=== PATIENT | female | born 1970 | race Two or more races ===

== ENCOUNTER 2016-05-07 07:35 | Day surgery (SDC) | payer OTHER ==
[~2016-05-07 07:35] MED LIST: DIPHENHYDRAMINE HCL 50 MG/ML VIAL ONE; EPINEPHRINE INJ 1 MG/10 ML DISP.SYRIN ONE; FENTANYL CITRATE INJ/PF 100 MCG/2 ML AMPUL ONE; FLUMAZENIL INJ 0.5 MG/5 ML VIAL IV ONE; GLUCAGON,HUMAN RECOMB 1 MG INJ ONE; MIDAZOLAM 2 MG/2 ML INJ ONE; NALOXONE HCL INJ/PF 0.4 MG/1 ML SDV ONE; ONDANSETRON HCL INJ/PF 4 MG/2 ML SDV ONE; PROMETHAZINE HCL INJ 25 MG/1 ML VIAL ONE
--- NOTE | 2016-05-07 08:15 | Operative Report ---
Operative Report DATE OF SURGERY: 05/07/16 Operative Report: The risks benefits and alternatives of the procedure explained to the patient in detail and informed consent is obtained that GIF Olympus video scope was inserted into the patient's mouth and hypopharynx the esophagus is identified intubated and insufflated the scope was then advanced through the esophagus stomach and duodenum retroflexion maneuver is done the esophagus stomach and first and second portions of the duodenum examined PREOPERATIVE DIAGNOSIS: Abdominal pain, epigastric POSTOPERATIVE DIAGNOSIS: Gastritis status post biopsy rule out Helicobacter pylori OPERATION: EGD with biopsy SURGEON: SANDY AGUIRRE ANESTHESIA: Moderate Sedation - 2 mg of Versed, 25 g of fentanyl. TISSUE REMOVED OR ALTERED: Gastric specimens obtained COMPLICATIONS: None. ESTIMATED BLOOD LOSS: none. INTRAOPERATIVE FINDINGS: Normal esophagus. Gastritis noted, antral sparing. First and second portions of the duodenum are normal. PROCEDURE: Patient tolerated the procedure well. No immediate postprocedure complications are noted. Patient is discharged in good condition. Discharge date 05/07/2016. Discharge diet: Regular. Discharge activity: Regular. Patient does have a 2-3 week follow-up to discuss findings. Patient is instructed to call the office or proceed to the emergency room after any further problems or questions. We'll await on biopsies.
[2016-05-07 09:20] VITALS: BP 131/80
== END 2016-05-07 09:50 | disposition home or self-care (01) ==
LOC: END 07:35
PROVIDERS: ATTEND Internal Medicine Gastroenterology
PROC: 0DB68ZX Excision of Stomach, Via Natural or Artificial Opening Endoscopic, Diagnostic (ICD-10-PCS; principal; 2016-05-07 08:00)
DX: K29.50 Unspecified chronic gastritis without bleeding (principal); E78.5 Hyperlipidemia, unspecified; E11.9 Type 2 diabetes mellitus without complications; Z79.899 Other long term (current) drug therapy; Z79.84 Long term (current) use of oral hypoglycemic drugs
CPT/HCPCS: 43239; 82962; 88342 ×2; 88305 ×2; J2250; J3010; J0171; J1200; J1610; J2310; J2405; J2550; J3490

== ENCOUNTER → 2020-02-06 | Outpatient (CLI) | payer OTHER ==
[2020-02-06 11:28] LABS: ABSOLUTE EOSINOPHILS # (AUTO) 0.3 10^3/uL (0.0-0.6); ABSOLUTE LYMPHOCYTES (AUTO) 3.4 10^3/uL (0.5-4.7); ABSOLUTE MONOCYTES (AUTO) 0.4 10^3/uL (0.1-1.4); ABSOLUTE NEUT (AUTO) 4.3 10^3/uL (1.7-8.2); BASOPHILS % (AUTO) 0.5 % (0-2); EOSINOPHILS % (AUTO) 3.5 % (0-6); HEMATOCRIT 38.2 % (36.0-47.0); HEMOGLOBIN 13.2 g/dL (12.0-15.5); LYMPHOCYTES % (AUTO) 39.7 % (13-45); MEAN CORPUSCULAR HEMOGLOBIN 29.7 pg (27.0-33.4); MEAN CORPUSCULAR HGB CONC 34.6 g/dL (32.0-36.0); MEAN CORPUSCULAR VOLUME 86 fl (80-97); MONOCYTES % (AUTO) 5.2 % (3-13); PLATELET COUNT 190 10^3/uL (150-450); RED BLOOD COUNT 4.45 10^6/uL (3.72-5.28); RED CELL DISTRIBUTION WIDTH 12.8 % (11.5-14.0); SEGMENTED NEUTROPHILS % (AUTO) 51.1 % (42-78); TOTAL CELLS COUNTED % (AUTO) 100 %; WHITE BLOOD COUNT 8.5 10^3/uL (4.0-10.5)
[2020-02-06 12:03] LABS: ALBUMIN 4.4 g/dL (3.5-5.0); ALKALINE PHOSPHATASE 74 U/L (38-126); ANION GAP 13 (5-19); ASPARTATE AMINO TRANSFERASE 25 U/L (14-36); BILIRUBIN,TOTAL 0.5 mg/dL (0.2-1.3); BLOOD UREA NITROGEN 16 mg/dL (7-20); CALCIUM 9.6 mg/dL (8.4-10.2); CARBON DIOXIDE 21 mmol/L (22-30); CHLORIDE 107 mmol/L (98-107); CHOLESTEROL 191.01 mg/dL (0-200); GLUCOSE 161 mg/dL (75-110); TOTAL PROTEIN 7.8 g/dL (6.3-8.2); TRIGLYCERIDES 200 mg/dL (<150)
[2020-02-06 12:14] LABS: DIRECT LDL 91 mg/dL (<100)
[2020-02-07 13:37] LABS: CREATININE URINE 108.2 mg/dL (Not Estab.); MICROALBUMIN URINE 24.3 ug/mL (Not Estab.)
== END ==
LOC: OD 09:59
PROVIDERS: ATTEND Internal Medicine
DX: E11.9 Type 2 diabetes mellitus without complications (principal); I10 Essential (primary) hypertension; E78.5 Hyperlipidemia, unspecified; R53.83 Other fatigue
CPT/HCPCS: 36415; 80053; 80061; 82043; 82306; 82570; 83036; 84443; 85025

== ENCOUNTER → 2020-02-08 | Outpatient (CLI) | payer OTHER ==
--- NOTE | 2020-02-08 12:34 | WOMENS IMAGING REPORT ---
EXAM DESCRIPTION: BONE DENSITY HIP/SPINE IMAGES COMPLETED DATE/TIME: 02/08/2020 9:24 am REASON FOR STUDY: Z78.0 ASYMPTOMATIC MENOPAUSAL STATE Z78.0 ASYMPTOMATIC MENOPAUSAL STATE COMPARISON: None. TECHNIQUE: Dual-Energy X-ray Absorptiometry (DEXA) of the AP Spine and Hip. LIMITATIONS: None. FINDINGS: LUMBAR SPINE: The bone mineral density (BMD) measured from L1-L4 in the AP projection correlates with a T-score of -0.2, which is normal as defined by the World Health Organization. BMD Change vs Baseline: N/A HIP: The bone mineral density (BMD) measured in the left hip correlates with a T-score of -1.3, which is o steopenia as defined by the World Health Organization. BMD Change vs Baseline: N/A 10 year Fracture Risk Assessment: Major Osteoporotic Fracture: 4.3% Hip Fracture: 0.3% IMPRESSION: 1. LUMBAR SPINE WHO CLASSIFICATION: NORMAL. 2. HIP WHO CLASSIFICATION: OSTEOPENIA. COMMENT: The World Health Organization defines low BMD as follows: T-score: Normal: At or above -1.0 Osteopenia: Between -1.0 and -2.5 Osteoporosis: At or below -2.5 without fractures Established osteoporosis: At or below -2.5 with fractures In general, you may wish to consider: Diagnosis Treatment Follow-up DEXA Normal BMD Prevention 2-3 years Osteopenia Prevention/Therapy 1-2 years Osteoporosis Therapy Yearly TECHNICAL DOCUMENTATION: JOB ID: [id number] 2010 [employer]- All Rights Reserved Reading location - IP/workstation name: [email or web address]
--- OUTSIDE RECORDS SUMMARY | 2020-02-09 18:13 | XMS REPORT ---
:1970 [facility] [address] [place] [id number] Care Team Providers Name Role Phone Alea Attending Clinician Unavailable Alea Attending Clinician Unavailable Allergies, Adverse Reactions, Alerts This patient has no known allergies or adverse reactions. Medications This patient has no known medications. Problems This patient has no known problems. Procedures Procedure Date / Time Performed Performing Clinician Devic e OFFICE/OUTPATIENT VISIT, EST 2019-01-20 13:00:00 OFFICE/OUTPATIENT VISIT, EST 2018-04-13 14:00:00 Results Test Description Test Time Test Comments Text Results Atomic Results Result Comments COMPREHENSIVE METABOLIC PANEL 2019-01-20 14:01:00 Test Item Value Reference Range Comments ALT (test code = 1742-6) 16 U/L 6-29 AST (test code = 1920-8) 16 U/L 10-35 ALBUMIN/GLOBULIN RATIO (test code = 1759-0) 1.4 (calc) 1.0- 2.5 CHLORIDE (test code = 2075-0) 104 mmol/L 98-110 CARBON DIOXIDE (test code = 2027-9) 22 mmol/L 20-32 eGFR (test code = 01914-0) 114 mL/min/1.73m2 > OR = 60 GLOBULIN (test code = 03329-1) 3.1 g/dL (calc) 1.9-3.7 PROTEIN, TOTAL (test code = 2885-2) 7.4 g/dL 6.1-8.1 UREA NITROGEN (BUN) (test code = 3094-0) 17 mg/dL 7-25 GLUCOSE (test code = 2345-7) 122 mg/dL 65-99 CREATININE (test code = 2160-0) 0.72 mg/dL 0.50-1.10 ALKALINE PHOSPHATASE (test code = 6768-6) 72 U/L 33-115 SODIUM (test code = 2951-2) 139 mmol/L 135-146 BILIRUBIN, TOTAL (test code = 1975-2) 0.6 mg/dL 0.2-1.2 ALBUMIN (test code = 1751-7) 4.3 g/dL 3.6-5.1 POTASSIUM (test code = 2823-3) 4.3 mmol/L 3.5-5.3 CALCIUM (test code = 08722-0) 9.4 mg/dL 8.6-10.2 eGFR NON-AFR. SWAZI (test code = 26609-4) 98 mL/min/1.73m2 > OR = 60 BUN/CREATININE RATIO (test code = 3097-3) NOT APPLICABLE (calc) 6 LIPID PANEL, [id number] 14:01:00 Test Item Value Reference Range Comments LDL-CHOLESTEROL (test code = 62275-6) 51 mg/dL (calc) NON HDL CHOLESTEROL (test code = 00971-6) 75 mg/dL (calc) <130 HDL CHOLESTEROL (test code = 2085-9) 66 mg/dL >50 TRIGLYCERIDES (test code = 2571-8) 161 mg/dL <150 CHOLESTEROL, TOTAL (test code = 2093-3) 141 mg/dL <200 CHOL/HDLC RATIO (test code = 9830-1) 2.1 (calc) <5.0 SPECIMEN INTEGRITY [id number] 14:01:00SEE COMMENTCBC (INCLUDES DIFF/PLT)2019-01-20 14:01:00 Test Item Value Reference Range Comments HEMATOCRIT (test code = 4544-3) 41.6 % 35.0-45.0 MONOCYTES (test code = 5905-5) 4.8 % ABSOLUTE NUCLEATED RBC (test code = 43789-0) DNR cells/uL 0-0 HEMOGLOBIN (test code = 718-7) 13.8 g/dL 11.7-15.5 MCH (test code = 785-6) 28.6 pg 27.0-33.0 MCHC (test code = 786-4) 33.2 g/dL 32.0-36.0 MPV (test code = 776-5) 10.0 fL 7.5-12.5 BLASTS (test code = 709-6) DNR % ABSOLUTE BASOPHILS (test code = 704-7) 58 cells/uL 0-200 MYELOCYTES (test code = 749-2) DNR % EOSINOPHILS (test code = 713-8) 3.1 % ABSOLUTE MONOCYTES (test code = 742-7) 398 cells/uL 200-950 ABSOLUTE BLASTS (test code = 71692-6) DNR cells/uL 0-0 WHITE BLOOD CELL COUNT (test code = 6690-2) 8.3 Thousand/uL 3.8- 10.8 COMMENT(S) (test code = 8251-1) DNR ABSOLUTE METAMYELOCYTES (test code = DNR cells/uL 0-0 03769-7) REACTIVE LYMPHOCYTES (test code = 72985-8) DNR % 0-10 ABSOLUTE PROMYELOCYTES (test code = 54058-6) DNR cells/uL 0-0 ABSOLUTE EOSINOPHILS (test code = 711-2) 257 cells/uL 15-500 METAMYELOCYTES (test code = 740-1) DNR % ABSOLUTE LYMPHOCYTES (test code = 731-0) 3569 cells/uL 850-390 0 PROMYELOCYTES (test code = 783-1) DNR % LYMPHOCYTES (test code = 736-9) 43.0 % BASOPHILS (test code = 706-2) 0.7 % RED BLOOD CELL COUNT (test code = 789-8) 4.82 Million/uL 3.80-5. 10 NEUTROPHILS (test code = 770-8) 48.4 % ABSOLUTE BAND NEUTROPHILS (test code = DNR cells/uL 0-750 51409-7) NUCLEATED RBC (test code = 64924-0) DNR /100 WBC 0-0 BAND NEUTROPHILS (test code = 764-1) DNR % MCV (test code = 787-2) 86.3 fL 80.0-100.0 PLATELET COUNT (test code = 777-3) 217 Thousand/uL 140-400 ABSOLUTE MYELOCYTES (test code = 21108-4) DNR cells/uL 0-0 ABSOLUTE NEUTROPHILS (test code = 751-8) 4017 cells/uL 1500-78 00 RDW (test code = 788-0) 12.6 % 11.0-15.0 Hemoglobin A1c\S\2018-09-03 09:24:00 Test Item Value Reference Range Comments Hemoglobin A1c (test code = [id number]) 7.3 % 4.0-5.6 LIPID PANEL, [id number] 09:20:00 Test Item Value Reference Range Comments LDL-CHOLESTEROL (test code = 37671-7) 121 mg/dL (calc) HDL CHOLESTEROL (test code = 5-9) 63 mg/dL >50 NON HDL CHOLESTEROL (test code = 64603-2) 152 mg/dL (calc) <130 CHOL/HDLC RATIO (test code = 9830-1) 3.4 (calc) <5.0 TRIGLYCERIDES (test code = 2571-8) 192 mg/dL <150 CHOLESTEROL, TOTAL (test code = 2093-3) 215 mg/dL <200 COMPREHENSIVE METABOLIC [id number] 09:20:00 Test Item Value Reference Range Comments GLOBULIN (test code = 97888-5) 3.3 g/dL (calc) 1.9-3.7 UREA NITROGEN (BUN) (test code = 14 mg/dL 10-21-0) ALBUMIN/GLOBULIN RATIO (test code = 1.4 (calc) 1.0-2.5 175-0) AST (test code = 1920-8) 20 U/L 10-35 CREATININE (test code = 2160-0) 0.75 mg/dL 0.50-1.10 ALBUMIN (test code = 1751-7) 4.6 g/dL 3.6-5.1 PROTEIN, TOTAL (test code = 2885-2) 7.9 g/dL 6.1-8.1 BILIRUBIN, TOTAL (test code = 1974-) 0.5 mg/dL 0.2-1.2 CARBON DIOXIDE (test code = 2027-9) 24 mmol/L 20-32 CHLORIDE (test code = 2074-0) 107 mmol/L 98-110 eGFR (test code = 108 mL/min/1.73m2 > OR = 60 66602-3) BUN/CREATININE RATIO (test code = NOT APPLICABLE (calc) 09-18 3097-3) POTASSIUM (test code = 2823-3) 4.1 mmol/L 3.5-5.3 CALCIUM (test code = 11805-0) 9.7 mg/dL 8.6-10.2 SODIUM (test code = 2951-2) 140 mmol/L 135-146 eGFR NON-AFR. SWAZI (test code = 94 mL/min/1.73m2 > OR = 60 27053-6) ALT (test code = 1742-6) 19 U/L 6-29 GLUCOSE (test code = 2345-7) 121 mg/dL 65-99 ALKALINE PHOSPHATASE (test code = 81 U/L 33-115 6768-6) Hemoglobin A1c\S\2018-04-13 14:37:00 Test Item Value Reference Range Comments Hemoglobin A1c (test code = [id number]) 7.2 % 4.0-5.6 GLUCOSE,BEDSIDE\S\[id number] 07:48:00 Test Item Value Reference Range Comments GLUCOSE,BEDSIDE (test code = GLUBS) 170 mg/dL 70-110 Assessments Condition Name Status Diagnosis Date Treating Clinici an Essential (primary) hypertension Active Type 2 diabetes mellitus without Active complications Mixed hyperlipidemia Active Body mass index (BMI) 34.0-34.9, adult Active Type 2 diabetes mellitus without Active complications Mixed hyperlipidemia Active Other obesity due to excess calories Active Essential (primary) hypertension Active Encounters Start End Encounter Admission Attending Care Care Encounter Date/Time Date/Time Type Type Clinicians Facility Department ID 2019-01-20 2019-01-20 Outpatient JAY Cosby [facility] [id number] 4-9 13:00:00 13:00:00 [facility] [id number] Medicine [id number] 2018-04-13 Outpatient JAY Cosby [facility] [id number] B-C 14:00:00 14:00:00 [facility] [id number] Medicine [id number] Social History This patient has no known social history. Vital Signs This patient has no known vital signs.
== END ==
LOC: WI 08:55
PROVIDERS: ATTEND Internal Medicine
DX: Z78.0 Asymptomatic menopausal state (principal); M85.852 Other specified disorders of bone density and structure, left thigh
CPT/HCPCS: 77080

== ENCOUNTER → 2020-03-01 | Outpatient (CLI) | payer OTHER ==
--- NOTE | 2020-03-01 14:00 | RADIOLOGY REPORT (SQ) ---
EXAM DESCRIPTION: ANKLE LEFT COMPLETE IMAGES COMPLETED DATE/TIME: 03/01/2020 1:31 pm REASON FOR STUDY: M25.572 PAIN IN LEFT ANKLE AND JOINTS OF LEFT FOOT M25.572 PAIN IN LEFT ANKLE AND JOINTS OF LEFT FOOT COMPARISON: None. NUMBER OF VIEWS: Three views. TECHNIQUE: AP, lateral, and oblique radiographic images acquired of the left ankle. LIMITATIONS: None. FINDINGS: MINERALIZATION: Normal. BONES: No fracture or dislocation. Calcaneal spurs are present. JOINTS: No effusions. SOFT TISSUES: No soft tissue swelling. No foreign body. OTHER: No other significant finding. IMPRESSION: Calcaneal spurs. No acute finding in the ankle. TECHNICAL DOCUMENTATION: JOB ID: [id number] 2010 [employer]- All Rights Reserved Reading location - IP/workstation name: [email or web address]
== END ==
LOC: RAD 12:56
PROVIDERS: ATTEND Internal Medicine
DX: M77.32 Calcaneal spur, left foot (principal); M25.572 Pain in left ankle and joints of left foot